=== PATIENT | male | born 1960 | race Caucasian/White ===

== ENCOUNTER → 2017-11-17 16:04 | Outpatient (CLI) | payer BC, SELFPAY ==
--- NOTE | 2017-11-17 16:07 | CT_ITS ---
STUDY: CT MAXILLOFACIAL SINUSES REASON FOR EXAM: Male, 57 years old. Dizziness. RADIATION DOSAGE (If Supplied By Facility): CTDIvol = ( 33.45 ) mGy, DLP = ( 545.52 ) mGycm TECHNIQUE: The patient was scanned in a multi detector CT scanner. High resolution axial imaging was performed without the administration of intravenous contrast material. Sagittal and coronal images were reconstructed. Individualized dose optimization techniques were used for this CT. COMPARISON: None. FINDINGS: FRONTAL SINUSES: Mild mucosal thickening of the frontal sinuses. ETHMOIDAL SINUSES: Mild cortical thickening of the ethmoid sinuses. MAXILLARY SINUSES: Mild to moderate mucosal thickening of the maxillary sinuses worse on the left side. SPHENOIDAL SINUSES: Normal aeration, without mucosal inflammatory disease. There is patency of the bilateral maxillary infundibuli with normal uncinate processes, ethmoid bullae, and hiatus semilunaris. Normal bilateral middle turbinates. Normal bilateral inferior turbinates. Normal midline nasal septum. There is patency of the bilateral nasal airways. The visualized osseous structures are normal. The visualized bilateral orbital contents are normal. CT/Sinus/Facial Bone IMPRESSION: Mucosal thickening of the sinuses as described above. No air-fluid levels are seen. Electronically Signed: Casper Randall MD at 15:35 EDT Tel , Service support ,
== END ==
DX: J32.1 Chronic frontal sinusitis (principal); R42 Dizziness and giddiness
CPT/HCPCS: 70486

== ENCOUNTER → 2018-02-16 13:44 | Outpatient (CLI) | payer BC, SELFPAY ==
--- NOTE | 2018-02-16 13:50 | CT_ITS ---
HISTORY: Dizziness, poor balance last 2 years. TECHNIQUE: Multiple axial images were obtained of the brain with and without IV contrast. A radiation dose optimization technique was used for this scan. IV Contrast dosage and agent: 50 cc Isovue-[id number] contrast COMPARISON: Paranasal sinus CT 11/17/2017 FINDINGS: The ventricles are normal in size. Normal mcqueen-white matter differentiation. No intracranial mass, hemorrhage, or acute intracranial disease. Posterior fossa structures are unremarkable. No pathologic enhancement or suspicious extra-axial fluid collection. With comparison to previous, pansinusitis including subtotal opacification of the left maxillary sinus. Previous intranasal surgery with middle meatal antrostomies and lateral partial ethmoidectomies The mastoids and middle ear cavities appear clear. CT/Brain/Head W/WO Contrast IMPRESSION: 1. Normal CT brain without and with contrast. 2. Chronic pansinusitis with previous intranasal surgery. Details above. Individualized dose optimization techniques were used for this CT. at 2351 Reported and signed by: Abhilash Otto MD Electronically Signed: Abhilash Otto, at 23:49 EDT Tel , Service support ,
== END ==
DX: R42 Dizziness and giddiness (principal); R26.9 Unspecified abnormalities of gait and mobility
CPT/HCPCS: 70470; Q9967